=== PATIENT | male | born 1960 | race Caucasian/White ===

== ENCOUNTER 2020-08-10 17:49 | Inpatient (IN) | payer BC, MEDICARE ==
[~2020-08-10] VITALS: Ht 182.9 cm; Wt 104.4 kg
[2020-08-10] MEDS ORDERED: DEXT1CAP PO (18:04)
[2020-08-10] MEDS ORDERED: SERT50TA28 PO (18:04)
[2020-08-10] MEDS ORDERED: CARV6.2512 PO (18:04)
[2020-08-10] MEDS ORDERED: CHOL10003 PO (18:04)
[2020-08-10] MEDS ORDERED: MULITVITAMIN (18:04)
[2020-08-10] MEDS ORDERED: GLYB1TAB18 PO (18:04)
[2020-08-10] MEDS ORDERED: PANTOPRAZOLE 80 MG in SODIUM CHLORIDE 0.9% 100 ML IV SCH (18:30)
[2020-08-10] MEDS ORDERED: OCTREOTIDE 500 MCG in SODIUM CHLORIDE 0.9% 99 ML IV PRN (18:30)
[2020-08-10 18:50] LABS: BASOPHILS % (AUTO) 1 % (0-1); EOSINOPHILS % (AUTO) 6 % (1-7); LYMPHOCYTES % (AUTO) 22 % (22-44); MEAN CORPUSCULAR HEMOGLOBIN 31.4 pg (27.5-34.5); MONOCYTES % (AUTO) 11 % (2-9); NEUTROPHILS % (AUTO) 60 % (42-75); PLATELET COUNT 198 x10^3/uL (130-400); RED BLOOD COUNT 3.91 x10^6/uL (4.38-5.82); RED CELL DISTRIBUTION WIDTH 15.7 % (9.4-14.8)
[2020-08-10 18:55] LABS: MD NO
[2020-08-10 18:56] LABS: ALBUMIN 2.4 g/dL (3.4-5.0); ANION GAP 7 mmol/L (5-15); CALCIUM 8.6 mg/dL (8.5-10.1); CHLORIDE 109 mmol/L (98-107)
[2020-08-10 19:00] LABS: ALANINE AMINOTRANSFERASE 26 U/L (12-78); ALKALINE PHOSPHATASE 100 U/L (45-117); BILIRUBIN,TOTAL 0.6 mg/dL (0.2-1.0); CREATININE 0.98 mg/dL (0.7-1.3); TOTAL PROTEIN 10.1 g/dL (6.4-8.2)
[2020-08-10 19:20] LABS: INTERNATIONAL NORMALIZED RATIO 1.18 (0.93-1.1); PROTHROMBIN TIME 12.5 Seconds (9.6-11.5)
--- NOTE | 2020-08-10 19:34 | NUR ---
Break rn: Ocreotide iv infusion started per emar protocol.
[2020-08-10] MEDS ORDERED: SODIUM CHLORIDE FLUSH 10ML SYR IVF PRN (20:00)
[2020-08-10] MEDS ORDERED: ONDANSETRON 2MG/ML, 2ML IVPush PRN (20:30)
[2020-08-10] MEDS ORDERED: OXYcodone IR 5MG TABLET PO PRN (20:30)
[2020-08-10] MEDS: PANTOPRAZOLE 80 MG in SODIUM CHLORIDE 0.9% 100 ML IV SCH (20:30)
[2020-08-10] MEDS ORDERED: morphine SULFATE 10 MG/ML, 1ML IVPush PRN (20:30)
[2020-08-10] MEDS ORDERED: ENALAPRILAT 1.25 MG/ML, 2ML IVPush PRN (20:30)
[2020-08-10] MEDS ORDERED: LORazepam 2 MG/ML, 1ML IVPush PRN (20:30)
--- NOTE | 2020-08-10 22:00 | NUR ---
REPORT GIVEN TO RAOUL ANAND
[2020-08-10 22:39] VITALS: BP 159/80
[2020-08-10] MEDS: CARVEDILOL 6.25 MG TABLET PO SCH (23:35)
[2020-08-10] MEDS: SODIUM CHLORIDE 0.9% 1,000 ML IV SCH (23:36)
[2020-08-11] MEDS: PANTOPRAZOLE 80 MG in SODIUM CHLORIDE 0.9% 100 ML IV SCH ×2 (02:54→15:03)
[2020-08-11] MEDS: OCTREOTIDE 500 MCG in SODIUM CHLORIDE 0.9% 99 ML IV PRN ×2 (03:41→18:00)
[2020-08-11] MEDS: CARVEDILOL 6.25 MG TABLET PO SCH ×2 (05:40→17:49)
[2020-08-11 05:52] LABS: BASOPHILS % (AUTO) 2 % (0-1); EOSINOPHILS % (AUTO) 14 % (1-7); LYMPHOCYTES % (AUTO) 19 % (22-44); MEAN CORPUSCULAR HEMOGLOBIN 31.8 pg (27.5-34.5); MEAN CORPUSCULAR HGB CONC 34.1 g/dL (33.2-36.2); MEAN PLATELET VOLUME 8.2 fL (7.4-10.4); MONOCYTES % (AUTO) 10 % (2-9); NEUTROPHILS % (AUTO) 55 % (42-75); PLATELET COUNT 165 x10^3/uL (130-400); RED BLOOD COUNT 3.56 x10^6/uL (4.38-5.82); RED CELL DISTRIBUTION WIDTH 15.9 % (9.4-14.8)
[2020-08-11 06:03] LABS: CHLORIDE 110 mmol/L (98-107)
[2020-08-11 06:08] LABS: ANION GAP 5 mmol/L (5-15); CALCIUM 7.9 mg/dL (8.5-10.1); CREATININE 0.94 mg/dL (0.7-1.3)
[2020-08-11 06:28] LABS: MD SCAN
[2020-08-11 07:19] VITALS: BP 157/83
[2020-08-11] MEDS: SERTRALINE 50MG TABLET PO SCH (08:32)
[2020-08-11] MEDS: metFORMIN 500 MG TABLET PO SCH ×2 (08:32→17:48)
[2020-08-11] MEDS: SODIUM CHLORIDE 0.9% 1,000 ML IV SCH (08:32)
[2020-08-11] MEDS: GlyBURIDE 5 MG TABLET PO SCH ×2 (08:32→17:48)
[2020-08-11] MEDS: CHOLECALCIFEROL 5,000u TAB PO SCH (08:33)
[2020-08-11] MEDS ORDERED: GlyBURIDE 5 MG TABLET PO SCH (09:00)
[2020-08-11] MEDS ORDERED: PROPOFOL 10 MG/ML, 50ML ONE (09:43)
[2020-08-11] MEDS ORDERED: FENTANYL PF 100 MCG/2ML IV PRN (10:30)
[2020-08-11] MEDS ORDERED: HYDROmorphone 1 MG/ML, 1ML INJ IVPush PRN (10:30)
[2020-08-11] MEDS ORDERED: ONDANSETRON 2MG/ML, 2ML IVPush PRN (10:30)
[2020-08-11] MEDS ORDERED: MIDAZOLAM 1 MG/ML, 2ML IV PRN (10:30)
[2020-08-11] MEDS ORDERED: DIAZEPAM 5 MG/ML, 2ML IVPush PRN (10:30)
[2020-08-11] MEDS ORDERED: PROMETHAZINE 12.5 MG SUPP PR PRN (10:30)
[2020-08-11] MEDS ORDERED: EPHEDRINE 50 MG/ML, 1ML IVPush PRN (10:30)
[2020-08-11] MEDS ORDERED: OXYcodone 5 MG/5 ML ORAL.SOL UDC PO PRN (10:30)
[2020-08-11] MEDS ORDERED: ALBUTEROL SULFATE 2.5 MG/3 ML NPPB PRN (10:30)
[2020-08-11] MEDS ORDERED: PROMETHAZINE 25 MG/ML, 1ML IVPush PRN (10:30)
[2020-08-11] MEDS ORDERED: DIPHENHYDRAMINE 50 MG/ML, 1ML IVPush PRN (10:30)
[2020-08-11] MEDS ORDERED: LABETALOL 5MG/ML, 20ML IV PRN (10:30)
[2020-08-11] MEDS ORDERED: hydrALAzine 20 MG/ML, 1ML IV PRN ×2 (10:30→14:30)
[2020-08-11] MEDS ORDERED: MEPERIDINE/PF 25MG/0.5ML IVPush PRN (10:30)
[2020-08-11] MEDS ORDERED: CEFTRIAXONE PMX 2GM/50ML 50 ML IVPB SCH (11:00)
[2020-08-11 11:02] VITALS: BP 154/87
[2020-08-11] MEDS: INSULIN LISPRO 100 UNITS/ML, PEN SQ-INSULIN SCH ×3 (12:10→21:36)
[2020-08-11 12:58] VITALS: BP 171/75
[2020-08-11 13:36] VITALS: BP 154/75
[2020-08-11 16:24] VITALS: BP 173/89
[2020-08-11] MEDS ORDERED: AMLODIPINE 5 MG TABLET ONE (17:58)
[2020-08-11] MEDS ORDERED: AMLODIPINE 5 MG TABLET PO SCH (18:00)
[2020-08-11 19:00] VITALS: BP 178/75
[2020-08-12] MEDS: PANTOPRAZOLE 80 MG in SODIUM CHLORIDE 0.9% 100 ML IV SCH (01:53)
[2020-08-12] MEDS: OCTREOTIDE 500 MCG in SODIUM CHLORIDE 0.9% 99 ML IV PRN (01:53)
[2020-08-12 02:00] VITALS: BP 155/86
[2020-08-12 05:42] LABS: BASOPHILS % (AUTO) 2 % (0-1); EOSINOPHILS % (AUTO) 13 % (1-7); LYMPHOCYTES % (AUTO) 21 % (22-44); MEAN CORPUSCULAR HEMOGLOBIN 31.3 pg (27.5-34.5); MEAN CORPUSCULAR HGB CONC 33.9 g/dL (33.2-36.2); MEAN PLATELET VOLUME 7.6 fL (7.4-10.4); MONOCYTES % (AUTO) 10 % (2-9); NEUTROPHILS % (AUTO) 55 % (42-75); PLATELET COUNT 182 x10^3/uL (130-400); RED BLOOD COUNT 3.62 x10^6/uL (4.38-5.82); RED CELL DISTRIBUTION WIDTH 15.8 % (9.4-14.8)
[2020-08-12 05:44] VITALS: BP 162/90
[2020-08-12] MEDS: CARVEDILOL 6.25 MG TABLET PO SCH ×2 (05:46→17:32)
[2020-08-12 05:57] LABS: ALBUMIN 2.4 g/dL (3.4-5.0); ANION GAP 7 mmol/L (5-15); CALCIUM 7.9 mg/dL (8.5-10.1); CHLORIDE 107 mmol/L (98-107)
[2020-08-12 06:00] LABS: ALANINE AMINOTRANSFERASE 27 U/L (12-78); ALKALINE PHOSPHATASE 80 U/L (45-117); BILIRUBIN,TOTAL 0.8 mg/dL (0.2-1.0); CREATININE 0.86 mg/dL (0.7-1.3); TOTAL PROTEIN 9.7 g/dL (6.4-8.2)
[2020-08-12 06:12] LABS: MD NO
[2020-08-12 07:59] VITALS: BP 169/88
[2020-08-12] MEDS: INSULIN LISPRO 100 UNITS/ML, PEN SQ-INSULIN SCH ×4 (09:24→21:30)
[2020-08-12] MEDS: GlyBURIDE 5 MG TABLET PO SCH ×2 (09:24→17:32)
[2020-08-12] MEDS: AMLODIPINE 10 MG TAB PO SCH (09:25)
[2020-08-12] MEDS: metFORMIN 500 MG TABLET PO SCH ×2 (09:25→17:32)
[2020-08-12] MEDS: CHOLECALCIFEROL 5,000u TAB PO SCH (09:25)
[2020-08-12] MEDS: SERTRALINE 50MG TABLET PO SCH (09:25)
[2020-08-12 15:01] VITALS: BP 159/85
[2020-08-12 19:41] VITALS: BP 154/77
[2020-08-12] MEDS: LISINOPRIL 5 MG TABLET PO SCH (21:29)
[2020-08-12] MEDS: PANTOPRAZOLE 40MG TABLET PO SCH (21:29)
[2020-08-13 01:08] VITALS: BP 120/63
[2020-08-13 05:38] VITALS: BP 147/86
[2020-08-13] MEDS: CARVEDILOL 6.25 MG TABLET PO SCH (05:39)
[2020-08-13 08:07] VITALS: BP 130/77
[2020-08-13] MEDS: INSULIN LISPRO 100 UNITS/ML, PEN SQ-INSULIN SCH ×2 (08:35→11:00)
[2020-08-13] MEDS: metFORMIN 500 MG TABLET PO SCH (08:36)
[2020-08-13] MEDS: SERTRALINE 50MG TABLET PO SCH (08:36)
[2020-08-13] MEDS: GlyBURIDE 5 MG TABLET PO SCH (08:36)
[2020-08-13] MEDS: LISINOPRIL 5 MG TABLET PO SCH (08:37)
[2020-08-13] MEDS: CHOLECALCIFEROL 5,000u TAB PO SCH (08:37)
[2020-08-13] MEDS: PANTOPRAZOLE 40MG TABLET PO SCH (08:37)
[2020-08-13] MEDS: AMLODIPINE 10 MG TAB PO SCH (08:37)
[2020-08-13] MEDS ORDERED: LISI5TAB7 PO (08:38)
[2020-08-13] MEDS ORDERED: PANT40TA6 PO (08:38)
[2020-08-13] MEDS ORDERED: AMLO-211 PO (08:38)
== END 2020-08-13 12:34 | disposition home or self-care (01) | DRG 368 ==
LOC: ED 18:17 → EDIP 19:44 → 5SO 22:24 → DCLOUNGE 08-13 12:15
PROVIDERS: ADMIT Internal Medicine; ATTEND Hospitalist
PROC: 06L38CZ Occlusion of Esophageal Vein with Extraluminal Device, Via Natural or Artificial Opening Endoscopic (ICD-10-PCS; principal; 2020-08-11 09:30)
DX: I85.01 Esophageal varices with bleeding (principal); E43 Unspecified severe protein-calorie malnutrition; D68.9 Coagulation defect, unspecified; N17.9 Acute kidney failure, unspecified; D64.9 Anemia, unspecified; Z20.828 Contact with and (suspected) exposure to other viral communicable diseases; E11.65 Type 2 diabetes mellitus with hyperglycemia; Z68.31 Body mass index [BMI] 31.0-31.9, adult; E87.8 Other disorders of electrolyte and fluid balance, not elsewhere classified; F10.21 Alcohol dependence, in remission; F32.9 Major depressive disorder, single episode, unspecified; I10 Essential (primary) hypertension; K70.30 Alcoholic cirrhosis of liver without ascites; Z82.3 Family history of stroke; Z83.3 Family history of diabetes mellitus; Z87.820 Personal history of traumatic brain injury; Z87.891 Personal history of nicotine dependence
CPT/HCPCS: 36415; 80048; 80053; 82962; 83690; 83735; 84100; 85018; 85025; 85610; 85730; 86850; 86900; 87635; 93005; G0378; J0696; J2354; J2704; C9113; J0360; J1815; J7030